=== PATIENT | male | born 1980 | race Caucasian/White ===

== ENCOUNTER 2019-04-07 14:47 | Emergency (ER) | payer SELFPAY | END 2019-04-07 16:00 | disposition home or self-care (01) | LOC: ERS 14:47 | DX: L02.426 Furuncle of left lower limb (principal); A60.01 Herpesviral infection of penis; F41.9 Anxiety disorder, unspecified; F17.210 Nicotine dependence, cigarettes, uncomplicated | CPT/HCPCS: 99283 ==

== ENCOUNTER 2019-04-08 14:53 | Emergency (ER) | payer SELFPAY ==
[2019-04-08] MEDS ORDERED: Sulfameth/Trimethoprim DS 800-160mg TAB ONE (15:16)
== END 2019-04-08 15:40 | disposition home or self-care (01) ==
LOC: ERS 14:53
DX: L02.416 Cutaneous abscess of left lower limb (principal); F17.200 Nicotine dependence, unspecified, uncomplicated
CPT/HCPCS: 10060

== ENCOUNTER 2019-04-10 14:07 | Emergency (ER) | payer SELFPAY | END 2019-04-10 14:56 | disposition home or self-care (01) | LOC: ERS 14:07 | DX: Z48.817 Encounter for surgical aftercare following surgery on the skin and subcutaneous tissue (principal); F41.9 Anxiety disorder, unspecified; F17.200 Nicotine dependence, unspecified, uncomplicated | CPT/HCPCS: 99282 ==

== ENCOUNTER 2020-06-13 15:41 | Emergency (ER) | payer SELFPAY | END 2020-06-13 19:52 | disposition home or self-care (01) | LOC: ERS 15:41 | DX: G89.29 Other chronic pain (principal); M54.5 Low back pain; M41.9 Scoliosis, unspecified; F17.200 Nicotine dependence, unspecified, uncomplicated | CPT/HCPCS: 99281 ==